=== PATIENT | female | born 1990 | race Caucasian/White ===

== ENCOUNTER 2020-10-25 12:10 | Outpatient (CLI) | payer MEDICARE, SELFPAY ==
[2020-10-25 13:18] LABS: SARS-CoV-2 Ag Negative (Negative)
[2020-10-25 13:19] LABS: Influenza Control Valid (Valid)
== END 2020-10-25 12:11 | disposition home or self-care (01) ==
PROVIDERS: PCP Family Medicine; Visit Provider Family Medicine
DX: J00 Acute nasopharyngitis [common cold] (principal); Z20.828 Contact with and (suspected) exposure to other viral communicable diseases
CPT/HCPCS: 87081; 87426; 87804; 87880

== ENCOUNTER 2021-06-13 14:44 | Outpatient (CLI) | payer MEDICARE, SELFPAY ==
[2021-06-13 16:07] LABS: SARS-CoV-2 RNA PCR Positive (Negative)
== END 2021-06-13 14:45 | disposition home or self-care (01) ==
PROVIDERS: PCP Family Medicine; Visit Provider Family Medicine
DX: Z20.822 Contact with and (suspected) exposure to COVID-19 (principal)
CPT/HCPCS: 87081; 87880; C9803; U0003; U0005

== ENCOUNTER 2021-11-11 10:37 | Outpatient (CLI) | payer OTHER, SELFPAY ==
[2021-11-11 11:59] LABS: Influenza A QL RT-PCR Negative (Negative); Influenza B QL RT-PCR Negative (Negative); SARS-CoV-2 RNA PCR Negative (Negative)
== END 2021-11-11 10:38 | disposition home or self-care (01) ==
LOC: CHSLAB 10:41
PROVIDERS: PCP Family Medicine; Visit Provider Family Medicine
DX: M79.10 Myalgia, unspecified site (principal); J02.9 Acute pharyngitis, unspecified; Z20.822 Contact with and (suspected) exposure to COVID-19
CPT/HCPCS: 87081; 87502; 87880; C9803; U0003; U0005

== ENCOUNTER 2021-11-20 18:50 | Outpatient (CLI) | payer OTHER, SELFPAY ==
[2021-11-20 20:15] LABS: SARS-CoV-2 RNA PCR Negative (Negative)
== END 2021-11-20 18:51 | disposition home or self-care (01) ==
LOC: CHSLAB 18:53
PROVIDERS: PCP Family Medicine; Visit Provider Family Medicine
DX: R43.8 Other disturbances of smell and taste (principal); Z20.822 Contact with and (suspected) exposure to COVID-19
CPT/HCPCS: C9803; U0003; U0005